=== PATIENT | female | born 1935 | race Caucasian/White ===

== ENCOUNTER 2021-11-08 17:08 | Emergency (ER) | payer OTHER ==
--- NOTE | 2021-11-08 17:43 | RAD REPORT ---
EXAM DESCRIPTION: CT - CTHCSPWOC - 11/08/2021 5:32 pm CLINICAL HISTORY: Trauma, head and neck injury. trauma COMPARISON: <Comparisons> TECHNIQUE: Axial 5 mm thick images of the head were obtained. Axial 2 mm thick images of the cervical spine were obtained with sagittal and coronal reconstruction images generated and reviewed. All CT scans are performed using dose optimization technique as appropriate and may include automated exposure control or mA/KV adjustment according to patient size. FINDINGS: CT HEAD WITHOUT CONTRAST: No acute hemorrhage, hydrocephalus or extra-axial collection is identified.No areas of brain edema or midline shift. Remote left parietal infarct. Chronic small vessel ischemic changes The paranasal sinuses and mastoids are clear.The calvarium is intact. CT CERVICAL SPINE WITHOUT CONTRAST: No fracture or subluxation.No prevertebral soft tissues swelling is identified. Multilevel cervical s pondylosis with varying degrees of neural foraminal narrowing. Trace retrolisthesis of C5 on C6. Mild central spinal stenosis is likely present at C5-6. Carotid artery calcifications. . IMPRESSION: No acute intracranial or cervical spine findings.
--- NOTE | 2021-11-08 17:45 | RAD REPORT ---
EXAM DESCRIPTION: CT - CTFB CLINICAL HISTORY: Nasal fracture suspected COMPARISON: HEAD BRAIN W O CONTRAST dated 07/07/2013 TECHNIQUE: Axial 2 mm thick images of the face were obtained with sagittal and coronal reconstructio n images. All CT scans are performed using dose optimization technique as appropriate and may include automated exposure control or mA/KV adjustment according to patient size. FINDINGS: Soft tissue injury at the nose. Nondisplaced acute nasal bone fractures bilaterally. Sligh t angulation.The mandible is intact. The globes and orbital contents are grossly unremarkable.Circumferential thickening within the maxill karson sinuses as well as several ethmoid air cells. IMPRESSION: Nondisplaced nasal bone fractures.
--- NOTE | 2021-11-08 17:58 | EDPHYS ---
Physician Documentation [facility] Name: Natalia Merrill Age: 86 yrs Sex: Female : 1935 Arrival Date: 11/08/2021 Time: 17:09 Bed 8 Private MD: ED Physician Rashid Noguera HPI: 11/08 17:26 This 86 yrs old Female presents to ER via EMS with complaints of Fall Injury. ma2 17:26 Patient tripped and fell hit her nose, denies LOC vomiting has bilateral knee abrasion ma2 however she is able to walk with no knee pain, denies any other injury or pain. Historical: - Allergies: 17:19 No Known Allergies; jg9 - Home Meds: 17:19 Unable to obtain [Active]; jg9 - PMHx: 17:19 Hypertensive disorder; jg9 - Immunization history: Last tetanus immunization: unknown. - Social history:: Smoking status: Patient denies any tobacco usage or history of. - Family history:: not pertinent. ROS: 17:26 Constitutional: Negative for fever, chills, and weight loss. ma2 17:26 All other systems are negative. Exam: 17:26 Constitutional: This is a well developed, well nourished patient who is awake, alert, ma2 and in no acute distress. Head/Face: His nasal bridge abrasion no laceration, normocephalic, atraumatic. Eyes: Pupils equal round and reactive to light, extra-ocular motions intact. Lids and lashes normal. Conjunctiva and sclera are non-icteric and not injected. Cornea within normal limits. Periorbital areas with no swelling, redness, or edema. ENT: Nares patent. No nasal discharge, no septal abnormalities noted. Tympanic membranes are normal and external auditory canals are clear. Oropharynx with no redness, swelling, or masses, exudates, or evidence of obstruction, uvula midline. Mucous membranes moist. Neck: Trachea midline, no thyromegaly or masses palpated, and no cervical lymphadenopathy. Supple, full range of motion without nuchal rigidity, or vertebral point tenderness. No Meningismus. Chest/axilla: Normal chest wall appearance and motion. Nontender with no deformity. No lesions are appreciated. Cardiovascular: Regular rate and rhythm with a normal S1 and S2. No gallops, murmurs, or rubs. Normal PMI, no JVD. No pulse deficits. Respiratory: Lungs have equal breath sounds bilaterally, clear to auscultation and percussion. No rales, rhonchi or wheezes noted. No increased work of breathing, no retractions or nasal flaring. Abdomen/GI: Soft, non-tender, with normal bowel sounds. No distension or tympany. No guarding or rebound. No evidence of tenderness throughout. Skin: Warm, dry with normal turgor. Normal color with no rashes, no lesions, and no evidence of cellulitis. MS/ Extremity: Knees abrasions pulses equal, no cyanosis. Neurovascular intact. Full, normal range of motion. Neuro: Awake and alert, GCS 15, oriented to person, place, time, and situation. Cranial nerves II-XII grossly intact. Motor strength 5/5 in all extremities. Sensory grossly intact. Cerebellar exam normal. Normal gait. Vital Signs: 17:00 BP 184 / 61; Pulse 80; Resp 20 S; Temp 98.4; Pulse Ox 98% on R/A; Weight 68.04 kg; jg9 Height 5 ft. 3 in. (160.02 cm); Pain 5/10; 17:00 Body Mass Index 26.57 (68.04 kg, 160.02 cm) j9 [place] Coma Score: 17:00 Eye Response: spontaneous(4). Verbal Response: confused(4). Motor Response: obeys jg9 commands(6). Total: 14. 17:00 Patient GCS is 14 at baseline-hx of dementia 9 Trauma Score (Adult): 17:00 Eye Response: spontaneous(1); Verbal Response: confused(1); Motor Response: obeys jg9 commands(2); Systolic BP: > 89 mm Hg(4); Respiratory Rate: 10 to 29 per min(4); Rosa Score: 14; Trauma Score: 12; patient GCS is 14 at baseline, hx of dementia MDM: 17:18 Patient medically screened. ma2 17:26 Differential diagnosis: contusion, fracture, sprain, strain. Data reviewed: vital ma2 signs, nurses notes. Counseling: I had a detailed discussion with the patient and/or guardian regarding: the historical points, exam findings, and any diagnostic results supporting the discharge/admit diagnosis, the presence of at least one elevated blood pressure reading (>120/80) during this emergency department visit, the need for outpatient follow up. Response to treatment: the patient's symptoms have markedly improved after treatment. 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 Exp: jg9 08/15/2023. Lot #: [id number]. } Route: IM; Site: right deltoid; 19:04 Follow up: Response: No adverse reaction; Medication administered at discharge. jg9 18:45 Drug: HYDROcodone-acetaminophen 5 mg-325 mg 1 tabs Route: PO; jg9 19:03 Follow up: Response: No adverse reaction; Medication administered at discharge. jg9 Disposition Summary: 11/08/21 17:57 Discharge Ordered Location: Home ma2 Condition: Stable ma2 Diagnosis - Fracture of nasal bones ma2 Followup: ma2 - With: Private Physician - When: Tomorrow - Reason: If symptoms return, Continuance of care Discharge Instructions: - Discharge Summary Sheet ma2 - Nasal Fracture, [id number] ma2 Forms: - Medication Reconciliation Form ma2 - Thank You Letter ma2 - Antibiotic Education ma2 - Prescription Opioid Use ma2 Prescriptions: - Augmentin 875-125 mg Oral Tablet - take 1 tablet by ORAL route every 12 hours for 10 days; 20 tablet; Refills: 0, ma2 Product Selection Permitted - Diclofenac Sodium 75 mg Oral Tablet Sustained Release - take 1 tablet by ORAL route 2 times per day; 30 tablet; Refills: 0, Product ma2 Selection Permitted - Medrol (Robert) 4 mg Oral Tablets, Dose Pack - take 1 tablet by ORAL route as directed - follow package instructions; 1 ma2 packet; Refills: 0, Product Selection Permitted Signatures: Dispatcher [employer] EDMS Rashid Noguera MD MD ma2 Keira Brooks RN RN jg9 Corrections: (The following items were deleted from the chart) 17:41 17:18 Knee Right 3 View+RAD.RAD.BRZ ordered. EDMS EDMS 17:41 17:18 Knee Left 3 View+RAD.RAD.BRZ ordered. EDMS EDMS
--- NOTE | 2021-11-08 17:58 | ER ---
Nurse's Notes [facility] Name: Natalai Merrill Age: 86 yrs Sex: Female : 1935 Arrival Date: 11/08/2021 Time: 17:09 Bed 8 Private MD: Diagnosis: Fracture of nasal bones Presentation: 11/08 17:00 Chief complaint: EMS states: patient trip/fell/head injury. Patient denied LOC, patient jg9 reports no use of blood thinners. Care prior to arrival: None. Mechanism of Injury: Fall from standing position. Trauma event details: Injury occurred: at home. 17:00 Acuity: MANJU 3 jg9 17:00 Method Of Arrival: EMS: [facility] j9 17:00 Initial Sepsis Screen: Does the patient meet any 2 criteria? No. Patient's initial jg9 sepsis screen is negative. Does the patient have a suspected source of infection? No. Patient's initial sepsis screen is negative. Risk Assessment: Do you want to hurt yourself or someone else? Patient reports no desire to harm self or others. Onset of symptoms was November 08, 2021. 17:21 Coronavirus screen: Vaccine status: Patient reports receiving the 2nd dose of the covid jg9 vaccine. vaccinated. Ebola Screen: Patient negative for fever greater than or equal to 101.5 degrees Fahrenheit, and additional compatible Ebola Virus Disease symptoms Patient denies exposure to infectious person. Patient denies travel to an Ebola-affected area in the 21 days before illness onset. Trauma Activation: Alert Physician: ED Physician; Name: ; Notified At: ; Arrived At: Physician: General Surgeon; Name: ; Notified At: ; Arrived At: Physician: Radiology; Name: ; Notified At: ; Arrived At: Physician: Respiratory; Name: ; Notified At: ; Arrived At: Physician: Lab; Name: ; Notified At: ; Arrived At: Historical: - Allergies: 17:19 No Known Allergies; jg9 - Home Meds: 17:19 Unable to obtain [Active]; jg9 - PMHx: 17:19 Hypertensive disorder; jg9 - Immunization history: Last tetanus immunization: unknown. - Social history:: Smoking status: Patient denies any tobacco usage or history of. - Family history:: not pertinent. Screenin:18 Abuse screen: Denies threats or abuse. Denies injuries from another. Tuberculosis jg9 screening: No symptoms or risk factors identified. 17:22 Nutritional screening: No deficits noted. Fall Risk Fall in past 12 months (25 points). jg9 Primary Survey: 17:00 NO uncontrolled hemorrhage observed. A: The client is awake and alert. The airway is jg9 patent. Breathing/Chest: Spontaneous respiratory effort, equal unlabored respirations, breath sounds clear bilaterally, regular pattern, symmetrical chest rise and fall. Circulation: No external hemorrhage present. Regular and strong central pulse, skin warm/dry/normal color. Disability Pupils are equal, round, reactive to light and accommodation. Client is alert. Exposure/Environment: A warming method has been applied: A warm blanket has been provided to the patient. 17:00 Reassessment Alertness and Airway: Awake and alert. The airway is patent. Breathing: jg9 Spontaneous respiratory effort, equal unlabored respirations, breath sounds clear bilaterally, regular pattern with symmetrical chest rise and fall. Circulation: No external hemorrhage noted. Regular and strong central pulse, skin warm/dry/normal color. Disability: Alert. Secondary Survey: 18:30 HEENT: Nose: bleeding noted deformity noted bridge of nose. Gastrointestinal: No jg9 deficits noted. : No deficits noted. Musculoskeletal: No deficits noted. Assessment: 17:00 General: Appears in no apparent distress. Behavior is calm, cooperative, Smells of. jg9 Pain: Complains of pain in nose. Neuro: No deficits noted. EENT: No deficits noted. Cardiovascular: No deficits noted. Respiratory: No deficits noted. GI: No deficits noted. : No deficits noted. Derm: No deficits noted. Skin Skin is. Musculoskeletal: No deficits noted. Injury Description: Abrasion sustained to nose is patient has abrasion to bridge of nose with small amount of dried blood noted. Vital Signs: 17:00 BP 184 / 61; Pulse 80; Resp 20 S; Temp 98.4; Pulse Ox 98% on R/A; Weight 68.04 kg; jg9 Height 5 ft. 3 in. (160.02 cm); Pain 5/10; 17:00 Body Mass Index 26.57 (68.04 kg, 160.02 cm) jg9 Rosa Coma Score: 17:00 Eye Response: spontaneous(4). Verbal Response: confused(4). Motor Response: obeys jg9 commands(6). Total: 14. 17:00 Patient GCS is 14 at baseline-hx of dementia jg9 Trauma Score (Adult): 17:00 Eye Response: spontaneous(1); Verbal Response: confused(1); Motor Response: obeys jg9 commands(2); Systolic BP: > 89 mm Hg(4); Respiratory Rate: 10 to 29 per min(4); [place] Score: 14; Trauma Score: 12; patient GCS is 14 at baseline, hx of dementia ED Course: 17:00 Patient maintains SpO2 saturation greater than 95% on room air. jg9 17:09 Patient arrived in ED. ss 17:10 Rashid Noguera MD is Attending Physician. ma2 17:12 Keira Brooks, ROSAS is Primary Nurse. jg9 17:13 Triage completed. jg9 17:20 Arm band placed on right wrist. jg9 17:23 Patient has correct armband on for positive identification. Bed in low position. Call jg9 light in reach. Side rails up X 1. 17:23 Thermoregulation: warm blanket given to patient. jg9 17:34 CT Head C Spine In Process Unspecified. EDMS 17:34 CT Facial Bones W/O Con In Process Unspecified. EDMS 19:04 No provider procedures requiring assistance completed. jg9 19:05 IV discontinued. 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 Exp: jg9 08/15/2023. Lot #: [id number]. } Route: IM; Site: right deltoid; 19:04 Follow up: Response: No adverse reaction; Medication administered at discharge. jg9 18:45 Drug: HYDROcodone-acetaminophen 5 mg-325 mg 1 tabs Route: PO; jg9 19:03 Follow up: Response: No adverse reaction; Medication administered at discharge. jg9 Medication: 17:23 VIS not applicable for this client. jg9 Outcome: 17:57 Discharge ordered by . ma2 19:04 Discharged to home via wheelchair. jg9 19:04 Condition: stable 19:04 Discharge instructions given to patient, Instructed on discharge instructions, follow up and referral plans. Demonstrated understanding of instructions, follow-up care, medications, Prescriptions given X 3. 19:05 Patient's length of stay was not longer than 2 hours. pending imaging resultsPatient's jg9 length of stay extended due to 19:05 Patient left the ED. jg9 Signatures: Dispatcher [employer] EDMS Jennifer Ruiz RN RN ss Rashid Noguera MD MD de2 Keira Brooks RN RN jg9 Corrections: (The following items were deleted from the chart) 17:20 17:00 Chief complaint: EMS states: trip/fall/head injury jg9 jg9
[2021-11-08] MEDS ORDERED: HYDROCODONE/APAP 5/325 MG TAB ONE (18:49)
[2021-11-08] MEDS ORDERED: TETANUS & DIPHTHERIA TOX,ADULT 0.5 ML VIAL ONE (18:50)
== END 2021-11-08 19:05 | disposition home or self-care (01) ==
LOC: ER 17:08
DX: S02.2XXA Fracture of nasal bones, initial encounter for closed fracture (principal); I10 Essential (primary) hypertension; Z23 Encounter for immunization
CPT/HCPCS: 70450; 70486; 72125; 76377; 90714